=== PATIENT | male | born 1945 | race Caucasian/White ===

== ENCOUNTER → 2016-05-26 | Outpatient (CLI) | payer OTHER ==
[~2016-05-26] MED LIST: ALBU18002 INH; ASPEC81 PO; ASPI81TA28 PO; ATOR-22 PO; CNT PO; DLCSR120 PO; FOLI1TAB7 PO; METO50TA7 PO; MULT-506 PO; NTRGSL/4 UT; OXYC-57 PO; TAMS0.4C38 PO; THIA50TA3 PO
[2016-05-26 11:23] LABS: CHOLESTEROL/HDL RATIO 2.7
== END | disposition home or self-care (01) ==
LOC: C.LAB1850 08:52
PROVIDERS: ATTEND Internal Medicine Cardiovascular Disease
DX: E78.5 Hyperlipidemia, unspecified (principal); I10 Essential (primary) hypertension

== ENCOUNTER → 2016-07-07 | Outpatient (CLI) | payer OTHER ==
[2016-07-07 09:22] LABS: BASO % 0.3 %; BASO ABS # 0.03 K/uL (0-0.2); COMPLETE YES; EOS % 3.2 %; HEMATOCRIT 44.1 % (42-52); IG% 0.2 %; LYMPH % 15.8 %; LYMPH ABS # 1.59 K/uL (1.2-3.4); MEAN CELL VOLUME 87.5 fL (80-100); MEAN CORPUSCULAR HEMOGLOBIN 29.6 pg (25-34); MEAN CORPUSCULAR HGB CONC 33.8 g/dl (32-36); MEAN PLATELET VOLUME 11.5 fL (7.4-10.4); MONO % 7.2 %; NEUT % 73.3 %; PLATELET COUNT 234 K/uL (130-400); RED BLOOD COUNT 5.04 M/uL (4.7-6.1); WHITE BLOOD COUNT 10.07 K/uL (4.8-10.8)
[2016-07-07 10:03] LABS: ALT/SGPT 22 U/L (12-78); BLOOD UREA NITROGEN 14 mg/dl (7-18); BUN/CREATININE RATIO 14.1 (10-20); CALCIUM 8.9 mg/dl (8.5-10.1); CARBON DIOXIDE 28 mmol/L (21-32); CHLORIDE 105 mmol/L (98-107); CHOLESTEROL 129 mg/dl (0-200); CREATININE 0.98 mg/dl (0.60-1.40); GLUCOSE 103 mg/dl (70-99); POTASSIUM 4.1 mmol/L (3.5-5.1); SODIUM 140 mmol/L (136-145)
[2016-07-07 10:14] LABS: ALB/GLOB RATIO 0.9 (0.9-2); ALKALINE PHOSPHATASE 114 U/L (45-117); AST/SGOT 14 U/L (15-37); CHOLESTEROL/HDL RATIO 2.9; HDL CHOLESTEROL 44 mg/dl; LDL CHOLESTEROL CALCULATED 60 mg/dl; TRIGLYCERIDES 126 mg/dl (0-150); VERY LOW DENSITY LIPOPROT CALC 25 mg/dl
== END | disposition home or self-care (01) ==
LOC: C.LAB1850 08:43
PROVIDERS: ATTEND Internal Medicine Pulmonary Disease
DX: C67.9 Malignant neoplasm of bladder, unspecified (principal); E78.5 Hyperlipidemia, unspecified; I10 Essential (primary) hypertension; D49.4 Neoplasm of unspecified behavior of bladder; N40.0 Benign prostatic hyperplasia without lower urinary tract symptoms; J31.0 Chronic rhinitis

== ENCOUNTER 2016-08-10 08:05 | Day surgery (SDC) | payer OTHER ==
[2016-08-04 08:35] VITALS: BMI 24.0
--- NOTE | 2016-08-04 09:05 | PAT Medication Instructions ---
Service Date August 04, 2016. Current Home Medication List Albuterol Sulfate (Proair Respiclick), 2 PUFF INH Q4 PRN for SOB/Wheezing Aspirin Enteric Coated (Ecotrin Or Generic *), 81 MG PO QPM Atorvastatin (Lipitor), 20 MG PO QPM Diltiazem Hcl Ext Rel (Dilacor Xr *), 120 MG PO QPM Metoprolol Succ (Toprol Xl) (Toprol-Xl), 50 MG PO QPM Nitroglycerin (Nitrostat), 0.4 MG UT PRN Tamsulosin Hcl (Flomax), 0.4 MG PO QPM Medication Instructions For Your Scheduled Surgery - Continue as directed: Nitroglycerin (Nitrostat), 0.4 MG UT PRN - Last dose 08/03/16: Aspirin Enteric Coated (Ecotrin Or Generic *), 81 MG PO QPM - Take the following medications the morning of surgery: Albuterol Sulfate (Proair Respiclick), 2 PUFF INH Q4 PRN for SOB/Wheezing (use if needed; BRING TO HOSPITAL) - Take the following medications as scheduled the night before surgery: Albuterol Sulfate (Proair Respiclick), 2 PUFF INH Q4 PRN for SOB/Wheezing Tamsulosin Hcl (Flomax), 0.4 MG PO QPM Atorvastatin (Lipitor), 20 MG PO QPM Diltiazem Hcl Ext Rel (Dilacor Xr *), 120 MG PO QPM Metoprolol Succ (Toprol Xl) (Toprol-Xl), 50 MG PO QPM If you have any questions please call us at [phone] or [phone] or [phone]
--- NOTE | 2016-08-04 09:51 | DIAGNOSTIC IMAGING REPORT ---
CHEST PREADMISSION(PA/LAT) CLINICAL HISTORY: Preoperative chest COMPARISON STUDY: 07/15/2014 FINDINGS: The cardiac and mediastinal contours are normal. There is no evidence of focal pulmonary consolidation. There is no evidence of failure. No pleural effusions are visualized.[ There is a mild spinal curvature convex to the right. Degenerative changes are present within the dorsal spine. IMPRESSION: No active disease in the chest. Electronically signed by: Felipe Schofield M.D. 08/04/2016 9:50 AM Dictated Date/Time: 08/04/2016 9:50 AM
[2016-08-04 09:52] LABS: BASO % 0.4 %; BASO ABS # 0.03 K/uL (0-0.2); COMPLETE YES; HEMATOCRIT 46.1 % (42-52); IG% 0.1 %; LYMPH % 25.1 %; MEAN CELL VOLUME 88.8 fL (80-100); MEAN CORPUSCULAR HEMOGLOBIN 29.9 pg (25-34); MEAN CORPUSCULAR HGB CONC 33.6 g/dl (32-36); MEAN PLATELET VOLUME 11.3 fL (7.4-10.4); MONO % 7.3 %; NEUT % 62.1 %; PLATELET COUNT 258 K/uL (130-400); RED BLOOD COUNT 5.19 M/uL (4.7-6.1); WHITE BLOOD COUNT 7.17 K/uL (4.8-10.8)
[2016-08-04 09:56] LABS: URINE APPEARANCE CLEAR (CLEAR); URINE BILIRUBIN NEG (NEG); URINE COLOR YELLOW; URINE EPITHELIAL CELL AUTO 0-5 /lpf (0-5); URINE NITRITE NEG (NEG); URINE PH 6.5 (4.5-7.5); URINE SPECIFIC GRAVITY 1.009 (1.000-1.030); UROBILINOGEN NEG (NEG)
[2016-08-04 10:00] LABS: MANUAL MICROSCOPIC REQUIRED? NO; REVIEW REQ? NO
[2016-08-04 11:37] LABS: BUN/CREATININE RATIO 13.9 (10-20); CALCIUM 9.4 mg/dl (8.5-10.1); POTASSIUM 4.3 mmol/L (3.5-5.1)
[~2016-08-10] VITALS: Ht 182.9 cm; Wt 81.6 kg
[~2016-08-10 08:05] MED LIST changes: -ASPI81TA28 PO; +CIPROFLOXACIN 400MG / D5W IV SCH; -CNT PO; -FOLI1TAB7 PO; +LACTATED RINGER'S 1000ML 1,000 ML IV SCH; -MULT-506 PO; -OXYC-57 PO; -THIA50TA3 PO
[2016-08-10 08:23] VITALS: BP 153/73; PULSE 73; TEMP 36.6; O2SAT 98; Ht 182.9 cm; Wt 81.6 kg
[2016-08-10] MEDS ORDERED: PROPOFOL IV EMULSION 10 MG/ML 20 ML VIAL IV ONE ×2 (08:42→09:45)
[2016-08-10] MEDS ORDERED: LIDOCAINE HCL 2% 2 ML VIAL (20MG/ML) ONE (08:42)
[2016-08-10] MEDS ORDERED: FENTANYL CITRATE INJ 50 MCG/1 ML 2 ML VIAL ONE (08:43)
[2016-08-10] MEDS ORDERED: MIDAZOLAM HCL 1 MG/ML 2ML VIAL ONE (08:43)
[2016-08-10] MEDS ORDERED: FENTANYL CITRATE INJ 50 MCG/1 ML 2 ML VIAL IV PRN (08:45)
[2016-08-10] MEDS ORDERED: EpHEDrine SULFATE INJ 50 MG/ML AMP IV PRN (08:45)
[2016-08-10] MEDS ORDERED: ATROPINE SULFATE 0.1 MG/ML 5ML SYR IV PRN (08:45)
[2016-08-10 09:02] VITALS: PULSE 55; O2SAT 97
--- NOTE | 2016-08-10 09:13 | History & Physical Bridge - SC ---
H&P Re-Evaluation Bridge Note: I have examined the patient, reviewed the History & Physical and in the interval since the performance of the History & Physical I have noted the following changes of clinical significance: No changes noted
[2016-08-10] MEDS ORDERED: ALBUT/IPRATROP 3MG/0.5MG NEB 3 ML VIAL INH SCH (09:30)
[2016-08-10] MEDS ORDERED: EpHEDrine SULFATE INJ 50 MG/ML AMP ONE (09:45)
[2016-08-10] MEDS ORDERED: ONDANSETRON INJ 2 MG/ML 2 ML VIAL ONE (09:45)
[2016-08-10] MEDS ORDERED: OXYC-57 PO (10:10)
--- NOTE | 2016-08-10 10:11 | Discharge Instructions ---
Discharge Instructions Date of Service August 10, 2016. Visit Reason for Visit: Bladder Tumor Discharge Discharge Diagnosis / Problem: bladder tumor Discharge Goals Goal(s): Therapeutic intervention Activity Recommendations Activity Limitations: resume your previous activity (take it easy today) Anesthesia . Post Anesthesia Instructions: If you have had General Anesthesia or IV Sedation: * Do not drive today. * Resume driving when surgeon permits. * Do not make important decisions or sign legal documents today. * Call surgeon for: 1. Temperature elevations greater than 101 degrees F. 2. Uncontrollable pain. 3. Excessive bleeding. 4. Persistent nausea and vomiting. 5. Medication intolerance (nausea, vomiting or rash). * For nausea and vomiting use only clear liquids such as: tea, soda, bouillon until nausea subsides, then gradually increase diet as tolerated. * If you have any concerns or questions, call your surgeon's office. If physician is unavailable and it is an emergency, call 911 or go to the nearest emergency room. . Diet Recommendations Recommended Home Diet: resume previous diet Procedures Procedures Performed: Bipolar Transurethral Resection Bladder Tumor Pending Studies Studies pending at discharge: no Medical Emergencies . Who to Call and When: Medical Emergencies: If at any time you feel your situation is an emergency, please call 911 immediately. . Non-Emergent Contact Non-Emergency issues call your: Urologist . . "Provider Documentation" section prepared by Tommy Aguiar. . [place] Drug Monitoring Program Search Results: patient reviewed within database
[2016-08-10] MEDS ORDERED: OXYCODONE/ACETAMINOPHEN 5-325 TAB PO PRN (10:15)
[2016-08-10 10:50] VITALS: BP 122/52; PULSE 59; TEMP 36.5; O2SAT 92
--- NOTE | 2016-08-10 11:18 | OPERATIVE REPORT ---
DATE OF OPERATION: 08/10/2016 PREOPERATIVE DIAGNOSIS: Bladder tumor, medium in size. POSTOPERATIVE DIAGNOSIS: Same. PROCEDURES: Cystoscopy, transurethral resection, fulguration of bladder tumor. FINDINGS: Cystoscopic exam revealed normal urethra, prostatic fossa was obstructing with kissing lateral lobes, somewhat elevated median lobe. There was a bladder tumor, right at the bladder neck at 6 o'clock. There was also a bladder tumor on the right posterior wall and also lateral to the left ureteral orifice. SURGEON: Dr. Aguiar. ANESTHESIA: General. DRAINS: None. COMPLICATIONS: None. SPECIMENS: Bladder tumor fragments. INDICATIONS: The patient is a 71-year-old white male who on workup for hematuria was found to have bladder tumor, being brought in for resection. PROCEDURE: After the induction of an adequate general anesthetic and appropriate time-out, the patient was placed in the dorsal lithotomy position, lower abdomen and genitalia were prepped with Hibiclens and draped in a sterile fashion. Using a 22-Argentine cystoscope, routine cystoscopic exam was performed with the above-noted findings with the 30 and 70 degree lenses. Next, using a 24-Argentine bipolar cautery loop and resection scope, the bladder tumor at 6 o'clock, the bladder neck was resected and the area was then fulgurated for hemostasis. The tumor on the posterior wall on the right was then fulgurated with the loop as was the tumor lateral to the left ureteral orifice. Care was taken to avoid any injury to the ureteral orifices. After completing this, a Agata was used to evacuate the bladder tumor fragments. Bladder was then reinspected, there was no bleeding from the resection sites, there were no bladder tumor fragments remaining in the bladder. The patient's bladder was then drained, cystoscope and sheath were removed. All needle, sponge and instrument counts were correct at the end of the case. The patient tolerated the procedure well and went to the recovery room in stable condition. I attest to the content of the Intraoperative Record and any orders documented therein. Any exceptio ns are noted below.
[2016-08-10 11:20] VITALS: BP 115/56; PULSE 58; O2SAT 92
--- NOTE | 2016-08-10 11:57 | Anesthesiology Progress Note ---
Anesthesia Post Op Note Date & Time August 10, 2016 at 11:57 Vital Signs Pain Intensity: 0 Vital Signs Past 12 Hours Date Time Temp Pulse Resp B/P Pulse Ox O2 Delivery O2 Flow Rate FiO2 08/10/16 11:20 58 18 115/56 92 Diffusion Mask 0 08/10/16 10:50 36.5 59 18 122/52 92 Diffusion Mask 08/10/16 10:35 70 20 122/52 93 08/10/16 10:35 68 20 08/10/16 10:30 76 21 08/10/16 10:30 72 21 109/58 93 08/10/16 10:25 78 22 08/10/16 10:25 79 22 114/51 97 08/10/16 10:21 114/76 08/10/16 10:20 75 18 100 08/10/16 10:20 75 18 08/10/16 10:16 120/51 08/10/16 10:15 61 13 100 08/10/16 10:15 62 13 08/10/16 10:13 113/53 08/10/16 10:11 93/51 08/10/16 10:10 82 20 97/48 100 08/10/16 10:10 85 20 08/10/16 10:10 36.0 17 97/48 100 Diffusion Mask 10 08/10/16 09:02 55 18 97 Room Air 08/10/16 08:23 36.6 73 18 153/73 98 Room Air Notes Mental Status: alert / awake / arousable, participated in evaluation Pt Amnestic to Procedure: Yes Nausea / Vomiting: adequately controlled Pain: adequately controlled Airway Patency, RR, SpO2: stable & adequate BP & HR: stable & adequate Hydration State: stable & adequate Anesthetic Complications: no major complications apparent
== END 2016-08-10 11:25 | disposition home or self-care (01) ==
LOC: C.ACU 08:05
PROVIDERS: ATTEND Urology
DX: C67.5 Malignant neoplasm of bladder neck (principal); C67.4 Malignant neoplasm of posterior wall of bladder; I25.10 Atherosclerotic heart disease of native coronary artery without angina pectoris; H91.92 Unspecified hearing loss, left ear; M51.36 Other intervertebral disc degeneration, lumbar region; N40.0 Benign prostatic hyperplasia without lower urinary tract symptoms; E78.5 Hyperlipidemia, unspecified; I10 Essential (primary) hypertension; Z82.49 Family history of ischemic heart disease and other diseases of the circulatory system; Z82.3 Family history of stroke; Z79.82 Long term (current) use of aspirin; Z79.899 Other long term (current) drug therapy

== ENCOUNTER → 2016-11-25 | Outpatient (CLI) | payer OTHER ==
[~2016-11-25] MED LIST changes: +ASPI81TA28 PO; -CIPROFLOXACIN 400MG / D5W IV SCH; +FOLI1TAB7 PO; -LACTATED RINGER'S 1000ML 1,000 ML IV SCH; +MULT-506 PO; +OXYC-57 PO; +THIA50TA3 PO
[2016-11-25 12:35] LABS: CHOLESTEROL/HDL RATIO 3.5
== END | disposition home or self-care (01) ==
LOC: C.LAB1850 10:06
PROVIDERS: ATTEND Internal Medicine Cardiovascular Disease
DX: E78.5 Hyperlipidemia, unspecified (principal); I10 Essential (primary) hypertension

== ENCOUNTER 2016-12-04 01:27 | Inpatient (IN) | payer OTHER ==
[~2016-12-04] VITALS: Ht 182.9 cm; Wt 81.0 kg
[~2016-12-04 01:27] MED LIST changes: -ASPI81TA28 PO; -FOLI1TAB7 PO; -MULT-506 PO; -THIA50TA3 PO
[2016-12-04] MEDS ORDERED: SODIUM CHLORIDE 0.9% 1000ML 1,000 ML IV STA (01:48)
[2016-12-04 02:10] LABS: ISTAT CREATININE 1.1 mg/dl (0.6-1.3); ISTAT HEMOGLOBIN 15.3 g/dl (14.0-18.0); ISTAT IONIZED CALCIUM 1.28 mmol/l (1.12-1.32)
[2016-12-04 02:10] LABS: BASO % 0.4 %; BASO ABS # 0.04 K/uL (0-0.2); COMPLETE YES; EOS % 4.8 %; HEMATOCRIT 44.3 % (42-52); IG% 0.3 %; LYMPH % 23.8 %; LYMPH ABS # 2.72 K/uL (1.2-3.4); MEAN CELL VOLUME 88.2 fL (80-100); MEAN CORPUSCULAR HEMOGLOBIN 29.7 pg (25-34); MEAN CORPUSCULAR HGB CONC 33.6 g/dl (32-36); MEAN PLATELET VOLUME 11.5 fL (7.4-10.4); MONO % 8.4 %; NEUT % 62.3 %; PLATELET COUNT 254 K/uL (130-400); RED BLOOD COUNT 5.02 M/uL (4.7-6.1); WHITE BLOOD COUNT 11.41 K/uL (4.8-10.8)
[2016-12-04 02:15] LABS: URINE APPEARANCE CLEAR (CLEAR); URINE BILIRUBIN NEG (NEG); URINE COLOR YELLOW; URINE EPITHELIAL CELL AUTO 0-5 /lpf (0-5); URINE NITRITE NEG (NEG); URINE PH 5.5 (4.5-7.5); URINE SPECIFIC GRAVITY 1.016 (1.000-1.030); UROBILINOGEN NEG (NEG); ZZUR CULT IF INDIC CLEAN CATCH NO
[2016-12-04] MEDS ORDERED: OPTIRAY 320 IV PRN (02:15)
[2016-12-04 02:19] LABS: MANUAL MICROSCOPIC REQUIRED? NO; REVIEW REQ? NO
[2016-12-04 02:36] LABS: ALT/SGPT 21 U/L (12-78); AST/SGOT 13 U/L (15-37); BLOOD UREA NITROGEN 16 mg/dl (7-18); BUN/CREATININE RATIO 14.4 (10-20); CALCIUM 9.4 mg/dl (8.5-10.1); CARBON DIOXIDE 28 mmol/L (21-32); CHLORIDE 107 mmol/L (98-107); GLUCOSE 111 mg/dl (70-99); POTASSIUM 4.4 mmol/L (3.5-5.1); SODIUM 138 mmol/L (136-145)
[2016-12-04] MEDS ORDERED: ASPI81TA28 PO (02:36)
[2016-12-04] MEDS ORDERED: DLCSR120 PO (02:37)
[2016-12-04 02:38] LABS: ALKALINE PHOSPHATASE 112 U/L (45-117)
[2016-12-04] MEDS ORDERED: HYDROmorphone INJ 1 MG/ML SYR IV STA (02:56)
[2016-12-04] MEDS ORDERED: ALBUTEROL HFA 8 GM INHALER INH PRN (04:00)
[2016-12-04] MEDS ORDERED: ACETAMINOPHEN 325 MG TAB PO PRN (04:00)
[2016-12-04] MEDS ORDERED: MoRPHine SULFATE 4 MG/ML 1 ML CARP\\VIAL IV PRN (04:00)
[2016-12-04] MEDS ORDERED: ONDANSETRON INJ 2 MG/ML 2 ML VIAL IV PRN (04:00)
--- NOTE | 2016-12-04 04:04 | History and Physical ---
History & Physical Date & Time of Service: Dec 04, 2016 at 04:02 Chief Complaint: Abd Pain In To Back Primary Care Physician: Vipin Bravo M.D. History of Present Illness Source: patient 71-year-old male presenting to the ER with complaints of abdominal pain started at about 11:30 PM. The patient complains of pain in his mid abdominal area radiating to the back, 8/10 in severity, constant. Denies any nausea or vomiting or diarrhea denies. any fevers or chills or any urinary complaints. Denies any chest pain, shortness of breath, palpitations. He states that he drinks about 2-3 bottles of beer every day and has been drinking for a long time Past Medical/Surgical History Medical Problems: (1) Cataract Status: Resolved (2) History of bladder malignancy Status: Chronic Family History FHx: heart disease Stroke Social History Smoking Status: Current Some Day Smoker Drug Use: none Marital Status: Occupational Status: retired Allergies Coded Allergies: No Known Allergies (Verified , 12/04/16) Home Medications Scheduled Aspirin (Aspirin Ec), 81 MG PO DAILY Atorvastatin (Lipitor), 20 MG PO QPM Diltiazem HCl (Diltiazem HCl ER), 120 MG PO DAILY Metoprolol Succ (Toprol Xl) (Toprol-Xl), 50 MG PO QPM Nitroglycerin (Nitrostat), 0.4 MG UT PRN Tamsulosin Hcl (Flomax), 0.4 MG PO QPM Scheduled PRN Albuterol Sulfate (Proair Respiclick), 2 PUFF INH Q4 PRN for SOB/Wheezing Review of Systems Constitutional: No fever, No chills Eyes: No worsening of vision ENT: No hearing loss Respiratory: No cough, No sputum Cardiovascular: No chest pain Abdomen: + pain, No nausea, No vomiting, No diarrhea Musculoskeletal: No joint pain Genitourinary - Male: No hematuria, No dysuria Neurologic: No memory loss Psychiatric: No depression symptoms Hematologic / Lymphatic: No abnormal bleeding/bruising Integumentary: No rash Physical Exam Vital Signs Date Time Temp Pulse Resp B/P (MAP) Pulse Ox O2 Delivery O2 Flow Rate FiO2 12/04/16 03:24 77 16 142/65 97 Room Air 12/04/16 01:31 36.3 55 18 158/62 93 Room Air General Appearance: WD/WN, no apparent distress Head: normocephalic ENT: normal ENT inspection, hearing grossly normal Neck: supple Respiratory/Chest: chest non-tender, lungs clear Cardiovascular: regular rate, rhythm, no edema Abdomen/GI: normal bowel sounds, non tender, soft Extremities/Musculoskelatal: normal inspection, no pedal edema Neurologic/Psych: alert, normal mood/affect, oriented x 3 Skin: normal color Diagnostics Laboratory Results Results Past 24 Hours Test 12/04/16 01:40 12/04/16 01:45 12/04/16 01:56 Range/Units Urine Color YELLOW Urine Appearance CLEAR CLEAR Urine pH 5.5 4.5-7.5 Urine Specific [place] 1.016 1.000-1.030 Urine Protein NEG NEG Urine Glucose (UA) NEG NEG Urine Ketones NEG NEG Urine Occult Blood NEG NEG Urine Nitrite NEG NEG Urine Bilirubin NEG NEG Urine Urobilinogen NEG NEG Urine Leukocyte Esterase NEG NEG Urine WBC (Auto) 0 0-5 /hpf Urine RBC (Auto) 0-4 0-4 /hpf Urine Hyaline Casts (Auto) 0 0-5 /lpf Urine Epithelial Cells (Auto) 0-5 0-5 /lpf Urine Bacteria (Auto) NEG NEG White Blood Count 11.41 4.8-10.8 K/uL Red Blood Count 5.02 4.7-6.1 M/uL Hemoglobin 14.9 14.0-18.0 g/dL Hematocrit 44.3 42-52 % Mean Corpuscular Volume 88.2 80-100 fL Mean Corpuscular Hemoglobin 29.7 25-34 pg Mean Corpuscular Hemoglobin Concent 33.6 32-36 g/dl Platelet Count 254 130-400 K/uL Mean Platelet Volume 11.5 7.4-10.4 fL Neutrophils (%) (Auto) 62.3 % Lymphocytes (%) (Auto) 23.8 % Monocytes (%) (Auto) 8.4 % Eosinophils (%) (Auto) 4.8 % Basophils (%) (Auto) 0.4 % Neutrophils # (Auto) 7.11 1.4-6.5 K/uL Lymphocytes # (Auto) 2.72 1.2-3.4 K/uL Monocytes # (Auto) 0.96 0.11-0.59 K/uL Eosinophils # (Auto) 0.55 0-0.5 K/uL Basophils # (Auto) 0.04 0-0.2 K/uL RDW Standard Deviation 44.0 36.4-46.3 fL RDW Coefficient of Variation 13.5 11.5-14.5 % Immature Granulocyte % (Auto) 0.3 % Immature Granulocyte # (Auto) 0.03 0.00-0.02 K/uL Sodium Level 138 136-145 mmol/L Potassium Level 4.4 3.5-5.1 mmol/L Chloride Level 107 98-107 mmol/L Carbon Dioxide Level 28 21-32 mmol/L Anion Gap 3.0 17.0 16-25 mmol/L Blood Urea Nitrogen 16 7-18 mg/dl Creatinine 1.10 0.60-1.40 mg/dl Est Creatinine Clear Calc Drug Dose 64.1 ml/min Estimated GFR () 76.8 Estimated GFR (Non- 66.2 BUN/Creatinine Ratio 14.4 10-20 Random Glucose 111 70-99 mg/dl Calcium Level 9.4 8.5-10.1 mg/dl Total Bilirubin 0.4 0.2-1 mg/dl Direct Bilirubin < 0.1 0-0.2 mg/dl Aspartate Amino Transf (AST/SGOT) 13 15-37 U/L Alanine Aminotransferase (ALT/SGPT) 21 12-78 U/L Alkaline Phosphatase 112 45-117 U/L Total Protein 7.6 6.4-8.2 gm/dl Albumin 3.7 3.4-5.0 gm/dl Lipase 6328 73-393 U/L Bedside Hemoglobin 15.3 14.0-18.0 g/dl Bedside Hematocrit 45 42-52 % Bedside Sodium 141 135-144 mEq/L Bedside Potassium 4.3 3.3-5.0 mEq/L Bedside Chloride 102 101-112 mEq/L Bedside Total CO2 28 24-31 mEq/l Bedside Blood Urea Nitrogen 17 7-18 mg/dl Bedside Creatinine 1.1 0.6-1.3 mg/dl Bedside Glucose (other) 110 70-99 mg/dl Bedside Ionized Calcium (Tonya) 1.28 1.12-1.32 mmol/l Diagnostic Radiology Comparison: CT abdomen and pelvis 11/27/2008 There is stranding and fluid surrounding the pancreatic body and tail compatible with acute pancreatitis. no evidence of cystic or necrotic collection. Normal enhancement of the pancreatic parenchyma. Unremarkable liver, gallbladder, adrenal glands, and kidneys. Low-density 7 mm subcapsular focus in the posterior spleen, slightly increased in size from prior exam. Normal appendix. no evidence of bowel obstruction. Sigmoid diverticulitis without acute diverticulitis. Unremarkable urinary bladder and prostate. L$-S1 posterior decompression and osteometallic fusion. no cute osseous findings. Radiologist: Aki Venegas M.D. Study ready at 02:27 and initial results transmitted at 02:38. Impression Assessment and Plan 71-year-old male presenting to the ER with complaints of abdominal pain started at about 11:30 PM. Acute pancreatitis: - Elevated lipase at 6328, trend lipases - Liver enzymes within normal limits - Abdominal CT with stranding and fluid collection of the pancreas suggestive of acute pancreatitis - Continue IV hydration with LR - Pain control with morphine as needed - We'll keep him nothing by mouth Chronic alcohol: -Drinks about 3 bottles of beer every day - Monitor for alcohol withdrawal BPH: - Continue Flomax Hypertension/coronary artery disease: - Continue aspirin, Lipitor, Toprol and diltiazem Full code DVT prophylaxis: Heparin subcutaneous Disposition: Admitted to [facility] Resident Physician Supervision Note: Pt seen/examined independently. I discussed the case with the resident and agree with the findings and plan as documented in the note. Any exceptions or clarifications are listed here: Relatively healthy 71 y/o M presented with severe upper quadrant abdominal pain - subsequently diagnosed with pancreatitis - may be related to ETOH consumption. OE AAO x 3 S1,2 R CTAB Mild diffuse abdominal tenderness No CCE P: IVF, NPO, pain control Discussed possibility of pancreatitis induced by ETOH - pt mostly drinks in moderation Documented By: Vj Ortega Level of Care Med/Surg Resuscitation Status FULL RESUSCITATION VTE Prophylaxis VTE Risk Assessment Done? Y/N: Yes Risk Level: High Given or contraindicated: Unfractionated heparin SQ Resident Tracking Resident Involvement: Resident Care Provided Care Provided: Adult Hospital Medicine
[2016-12-04] MEDS ORDERED: POLYETHYLENE (MIRALAX) 17 GM PACK PO PRN (05:45)
--- NOTE | 2016-12-04 05:46 | EMERGENCY ROOM VISIT NOTE ---
History Report prepared by Chris: Bozena Robbins Under the Supervision of: Dr. Armando Jara M.D. First contact with patient: 01:35 Chief Complaint: ABDOMINAL PAIN Stated Complaint: ABD PAIN IN TO BACK History of Present Illness The patient is a 71 year old male who presents to the Emergency Room with complaints of constant abdominal pain starting two hours ago. He reports that it awoke him from his sleep. He notes that 3-4 years ago he had an episode of Diverticulitis, but states that this feels different. He states this pain goes into his back. He currently rates his pain an 8/10 in severity. The patient complains of excessive belching and passing gas. He reports taking a Tums two hours ago with no relief. The patient denies chest pain hematochezia, vomiting, nausea, rashes, leg swelling, and urinary symptoms. The patient notes his last bowel movement was this morning. The patient states he drinks one beer everyday with his buddies at the [employer]. He notes that he eats healthy. Source of History: patient Onset: two hours ago Position: abdomen Symptom Intensity: 8/10 Quality: other (radiating) Timing: constant Associated Symptoms: + back pain, No chest pain, No nausea, No vomiting, No hematochezia, No urinary symptoms, No rash Note: The patient complains of excessive belching and gas. The patient denies leg swelling. Review of Systems See HPI for pertinent positives & negatives. A total of 10 systems reviewed and were otherwise negative. Past Medical & Surgical Medical Problems: (1) Cataract (2) Diverticulitis (3) History of bladder malignancy (4) Pancreatitis Family History FHx: heart disease Stroke Social History Smoking Status: Current Some Day Smoker Drug Use: none Marital Status: Housing Status: lives with significant other Occupation Status: retired Current/Historical Medications Scheduled Aspirin (Aspirin Ec), 81 MG PO DAILY Atorvastatin (Lipitor), 20 MG PO QPM Diltiazem HCl (Diltiazem HCl ER), 120 MG PO DAILY Metoprolol Succ (Toprol Xl) (Toprol-Xl), 50 MG PO QPM Nitroglycerin (Nitrostat), 0.4 MG UT PRN Tamsulosin Hcl (Flomax), 0.4 MG PO QPM Scheduled PRN Albuterol Sulfate (Proair Respiclick), 2 PUFF INH Q4 PRN for SOB/Wheezing Allergies Coded Allergies: No Known Allergies (Verified , 12/04/16) Physical Exam Vital Signs Date Time Temp Pulse Resp B/P (MAP) Pulse Ox O2 Delivery O2 Flow Rate FiO2 12/04/16 03:24 77 16 142/65 97 Room Air 12/04/16 01:31 36.3 55 18 158/62 93 Room Air Physical Exam GENERAL: Patient is uncomfortable appearing and moderate distress. HEENT: No acute trauma, normocephalic atraumatic, mucous membranes moist, no nasal congestion, no scleral icterus. NECK: No stridor, no adenopathy, no meningismus, trachea is midline. LUNGS: No dyspnea. Clear to auscultation and equal bilaterally. No wheeze, no rhonchi. HEART: Regular rate and rhythm. No murmurs, rubs, gallops appreciated. ABDOMEN: Soft, diffuse tenderness to palpation primarily over periumbilical region, bowel sounds positive, no masses appreciated, no peritonitis. BACK: No midline tenderness, no CVA tenderness EXTREMITIES: Normal motion all extremities, no cyanosis, no edema. NEUROLOGIC: Alert and oriented, no acute motor or sensory deficits, no focal weakness, cranial nerves grossly intact. SKIN: No rash, no jaundice, no diaphoresis. Medical Decision & Procedures ER Provider Diagnostic Interpretation: Radiology results and stated below per my review and radiologist interpretation: CT ABDOMEN & PELVIS: Comparison: CT abdomen and pelvis 11/27/2008 There is stranding and fluid surrounding the pancreatic body and tail compatible with acute pancreatitis. no evidence of cystic or necrotic collection. Normal enhancement of the pancreatic parenchyma. Unremarkable liver, gallbladder, adrenal glands, and kidneys. Low-density 7 mm subcapsular focus in the posterior spleen, slightly increased in size from prior exam. Normal appendix. no evidence of bowel obstruction. Sigmoid diverticulitis without acute diverticulitis. Unremarkable urinary bladder and prostate. L$-S1 posterior decompression and osteometallic fusion. no cute osseous findings. Radiologist: Aki Venegas M.D. Study ready at 02:27 and initial results transmitted at 02:38. Laboratory Results 12/04/16 01:45 Red Blood Count 5.02, Mean Corpuscular Volume 88.2, Mean Corpuscular Hemoglobin 29.7, Mean Corpuscular Hemoglobin Concent 33.6, Mean Platelet Volume 11.5, Neutrophils (%) (Auto) 62.3, Lymphocytes (%) (Auto) 23.8, Monocytes (%) (Auto) 8.4, Eosinophils (%) (Auto) 4.8, Basophils (%) (Auto) 0.4, Neutrophils # (Auto) 7.11, Lymphocytes # (Auto) 2.72, Monocytes # (Auto) 0.96, Eosinophils # (Auto) 0.55, Basophils # (Auto) 0.04 12/04/16 01:45 Test 12/04/16 01:40 12/04/16 01:45 12/04/16 01:56 Urine Color YELLOW Urine Appearance CLEAR (CLEAR) Urine pH 5.5 (4.5-7.5) Urine Specific [place] 1.016 (1.000-1.030) Urine Protein NEG (NEG) Urine Glucose (UA) NEG (NEG) Urine Ketones NEG (NEG) Urine Occult Blood NEG (NEG) Urine Nitrite NEG (NEG) Urine Bilirubin NEG (NEG) Urine Urobilinogen NEG (NEG) Urine Leukocyte Esterase NEG (NEG) Urine WBC (Auto) 0 /hpf (0-5) Urine RBC (Auto) 0-4 /hpf (0-4) Urine Hyaline Casts (Auto) 0 /lpf (0-5) Urine Epithelial Cells (Auto) 0-5 /lpf (0-5) Urine Bacteria (Auto) NEG (NEG) White Blood Count 11.41 K/uL (4.8-10.8) Red Blood Count 5.02 M/uL (4.7-6.1) Hemoglobin 14.9 g/dL (14.0-18.0) Hematocrit 44.3 % (42-52) Mean Corpuscular Volume 88.2 fL (80-100) Mean Corpuscular Hemoglobin 29.7 pg (25-34) Mean Corpuscular Hemoglobin Concent 33.6 g/dl (32-36) Platelet Count 254 K/uL (130-400) Mean Platelet Volume 11.5 fL (7.4-10.4) Neutrophils (%) (Auto) 62.3 % Lymphocytes (%) (Auto) 23.8 % Monocytes (%) (Auto) 8.4 % Eosinophils (%) (Auto) 4.8 % Basophils (%) (Auto) 0.4 % Neutrophils # (Auto) 7.11 K/uL (1.4-6.5) Lymphocytes # (Auto) 2.72 K/uL (1.2-3.4) Monocytes # (Auto) 0.96 K/uL (0.11-0.59) Eosinophils # (Auto) 0.55 K/uL (0-0.5) Basophils # (Auto) 0.04 K/uL (0-0.2) RDW Standard Deviation 44.0 fL (36.4-46.3) RDW Coefficient of Variation 13.5 % (11.5-14.5) Immature Granulocyte % (Auto) 0.3 % Immature Granulocyte # (Auto) 0.03 K/uL (0.00-0.02) Est Creatinine Clear Calc Drug Dose 64.1 ml/min Estimated GFR () 76.8 Estimated GFR (Non- 66.2 BUN/Creatinine Ratio 14.4 (10-20) Calcium Level 9.4 mg/dl (8.5-10.1) Total Bilirubin 0.4 mg/dl (0.2-1) Direct Bilirubin < 0.1 mg/dl (0-0.2) Aspartate Amino Transf (AST/SGOT) 13 U/L (15-37) Alanine Aminotransferase (ALT/SGPT) 21 U/L (12-78) Alkaline Phosphatase 112 U/L (45-117) Total Protein 7.6 gm/dl (6.4-8.2) Albumin 3.7 gm/dl (3.4-5.0) Lipase 6328 U/L (73-393) Bedside Hemoglobin 15.3 g/dl (14.0-18.0) Bedside Hematocrit 45 % (42-52) Bedside Sodium 141 mEq/L (135-144) Bedside Potassium 4.3 mEq/L (3.3-5.0) Bedside Chloride 102 mEq/L (101-112) Bedside Total CO2 28 mEq/l (24-31) Anion Gap 17.0 mmol/L (16-25) Bedside Blood Urea Nitrogen 17 mg/dl (7-18) Bedside Creatinine 1.1 mg/dl (0.6-1.3) Bedside Glucose (other) 110 mg/dl (70-99) Bedside Ionized Calcium (Tonya) 1.28 mmol/l (1.12-1.32) Laboratory results as reviewed by me. Medications Administered Medications (Trade) Dose Ordered Sig/Kassi Route Start Time Stop Time Status Last Admin Dose Admin Sodium Chloride 1,000 ml @ 999 mls/hr Q1H1M STAT IV 12/04/16 01:48 12/04/16 02:48 DC 12/04/16 01:57 999 MLS/HR Hydromorphone HCl (Dilaudid Inj) 1 mg NOW STAT IV 12/04/16 02:56 12/04/16 02:57 DC 12/04/16 03:16 1 MG ED Course 0138: The patient was evaluated in room B6. A complete history and physical exam was performed. 0148: Ordered NSS 1000 ml @ 999 mls/hr IV. 0253: The patient asked for something for the pain now. 0256: Ordered Dilaudid Inj 1 mg IV. 0308: Discussed the patient's case with Dr. Ortega. The patient will be evaluated for further treatment and disposition. Medical Decision Differential: Appendicitis, Diverticulitis, PUD/Gastritis, Biliary Pathology, Pancreatitis, UTI, Renal Colic, Bowel Obstruction, Aortic Pathology, Acute Coronary Syndrome, amongst other pathologies entertained. 71 yr old male with acute onset diffuse abdominal pain worse around umbilicus and radiating to back this evening. No other associated symptoms. Admits Etoh many hours prior to symptom onset. CT with pancreatitis and lipase elevated consistent with his symptoms. Suspect Etoh related though will need further monitoring/work-up. Given IV narcotics with great relief in pain. Stable and admitted to hospitalist service. Medication Reconcilliation Current Medication List: was personally reviewed by me Blood Pressure Screening Patient's blood pressure: Elevated blood pressure Will be monitored by hospitalist. Consults Time Called: [phone] Consulting Physician: Dr. Ortega Returned Call: [phone] Discussed the patient's case with Dr. Ortega. The patient will be evaluated for further treatment and disposition. Impression Primary Impression: Pancreatitis Scribe Attestation The scribe's documentation has been prepared under my direction and personally reviewed by me in its entirety. I confirm that the note above accurately reflects all work, treatment, procedures, and medical decision making performed by me. Departure Information Dispostion Being Evaluated By Hospitalist Referrals Vipin Bravo M.D. (PCP) Patient Instructions My [facility]
[2016-12-04] MEDS: LACTATED RINGER'S 1000ML 1,000 ML IV SCH ×3 (05:51→23:39)
[2016-12-04 06:16] VITALS: BP 152/71; PULSE 57; TEMP 36.4; O2SAT 93; Ht 182.9 cm; Wt 81.0 kg
[2016-12-04 06:19] LABS: HEMATOCRIT 41.6 % (42-52); MEAN CELL VOLUME 89.1 fL (80-100); MEAN CORPUSCULAR HEMOGLOBIN 28.9 pg (25-34); MEAN CORPUSCULAR HGB CONC 32.5 g/dl (32-36); MEAN PLATELET VOLUME 11.1 fL (7.4-10.4); PLATELET COUNT 225 K/uL (130-400); RED BLOOD COUNT 4.67 M/uL (4.7-6.1); WHITE BLOOD COUNT 9.55 K/uL (4.8-10.8)
[2016-12-04 06:27] LABS: INR 1.1 (0.9-1.1); PROTHROMBIN TIME (PATIENT) 11.4 SECONDS (9.0-12.0)
[2016-12-04 06:55] LABS: BUN/CREATININE RATIO 14.6 (10-20); CREATININE 0.95 mg/dl (0.60-1.40); POTASSIUM 4.4 mmol/L (3.5-5.1)
--- NOTE | 2016-12-04 07:12 | DIAGNOSTIC IMAGING REPORT ---
ABD/PELVIS IV CONTRAST ONLY CLINICAL HISTORY: 71 years-old Male presenting with diffuse sudden onset abdominal pain. TECHNIQUE: Multidetector CT of the abdomen and pelvis was performed after the administration of intravenous contrast. IV contrast: 93 mL of Optiray 320. A dose lowering technique was used consistent with the principles of ALARA (as low as reasonably achievable). COMPARISON: 11/27/2008. CT DOSE (mGy.cm): The estimated cumulative dose is 355.05 mGy.cm. FINDINGS: Alternative Medicine Practitioner topogram: Posterior lumbar fusion hardware. Lung bases: Minimal dependent changes likely atelectasis. Normal heart size. Coronary artery calcification. No pericardial or pleural effusion. Liver: Normal morphology. No liver lesion. Patent hepatic vasculature. Biliary: Mild central intrahepatic biliary ductal prominence. No extra hepatic biliary ductal dilatation. Normal gallbladder. Pancreas: Fat stranding along the pancreatic tail extending into the left anterior perirenal space and to the splenic hilum. No peripancreatic well-defined fluid collection. Pancreatic parenchyma is overall normal in its enhancement. Spleen: Small focal 1 cm hypodensity along the medial inferior aspect, possibly lymphangioma, hemangioma, or pseudocyst/cyst, evaluation limited by single phase of contrast. Parenchymal calcification may suggest prior granulomatous disease. Splenic artery and vein remain patent and normal in caliber. Adrenal glands: Normal. Kidneys and ureters: Vascular calcification noted most prominently in the segmental arteries in the left kidney. No nephrolithiasis. Normal enhancement. No hydronephrosis. Normal ureters. Bladder: Mild circumferential wall thickening. Pelvic organs: Prostate enlargement likely secondary to benign prostatic hyperplasia. Bowel: Diverticulosis of the sigmoid colon and to a lesser extent the descending colon. Normal appendix. No bowel obstruction. No significant reactive wall thickening of the splenic flexure. Peritoneal cavity: Retroperitoneal fluid in the left anterior para renal space as mentioned above. No free intraperitoneal fluid or gas. 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 The false lumen is nonopacified. Lymph nodes: Scattered subcentimeter retroperitoneal lymph nodes, likely reactive. Abdominal wall: Normal. Musculoskeletal: Degenerative changes of the spine. Posterior lumbar fusion hardware from L4 to S1 with associated laminectomy defects. IMPRESSION: 1. Findings consistent with interstitial edematous pancreatitis along the pancreatic tail. No focal acute peripancreatic fluid collection. No additional competition. 2. 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 3. Sigmoid diverticulosis. Electronically signed by: Joshua Diaz M.D. 12/04/2016 7:11 AM Dictated Date/Time: 12/04/2016 7:03 AM
[2016-12-04 07:23] VITALS: BP 148/79; PULSE 53; TEMP 36.5; O2SAT 95
[2016-12-04] MEDS: ASPIRIN 81 MG ECTAB PO SCH (08:00)
[2016-12-04] MEDS: DILTIAZEM HCL 120 MG ER CAP PO SCH (08:00)
[2016-12-04] MEDS: HEPARIN SOD 5000 UNIT/0.5 ML CARP SQ SCH ×2 (08:08→13:57)
--- NOTE | 2016-12-04 10:24 | Family Medicine Progress Note ---
Progress Note Date of Service Dec 04, 2016. Subjective Pt evaluation today including: conversation w/ patient, physical exam, chart review, lab review Pain: Improved: At rest 1-2/10 abd pn, with burping 5/10 PO Intake: NPO Voiding: no voiding problems This AM Mr. Ott reports improvement in pain to 1-2/10 at rest and 5/10 with abdominal pressure from burping/coughing. He reports he is able to get up and use the restroom and his urine is being collected and light yellow. Otherwise denies ELMORE/dizz, cp, sob, n/v, d/c. Of note: pt reports non-malignant bladder polyp removal on 08/20/16 Constitutional: No fever Respiratory: No shortness of breath Cardiovascular: No chest pain Abdomen: + pain, No nausea, No vomiting, No diarrhea, No constipation Male : No dysuria Medications Current Inpatient Medications Medications (Trade) Dose Ordered Sig/Kassi Route Start Time Stop Time Status Last Admin Dose Admin Ioversol (Optiray 320) 100 ml UD PRN IV 12/04/16 02:15 12/08/16 02:14 Heparin Sodium (Porcine) (Heparin Sq 5000 Unit/0.5ml) 5,000 unit Q8 SQ 12/04/16 06:00 01/03/17 05:59 12/04/16 08:08 5,000 UNIT Acetaminophen (Tylenol Tab) 650 mg Q4H PRN PO 12/04/16 04:00 01/03/17 03:59 Polyethylene (Miralax Powder Packet) 17 gm DAILY PRN PO 12/04/16 05:45 01/03/17 05:44 Ondansetron HCl (Zofran Inj) 4 mg Q6H PRN IV 12/04/16 04:00 01/03/17 03:59 Aspirin (Ecotrin Tab) 81 mg DAILY PO 12/04/16 08:00 01/03/17 08:59 Atorvastatin Calcium (Lipitor Tab) 20 mg QPM PO 12/04/16 21:00 01/03/17 20:59 Diltiazem HCl (Dilacor Xr Cap) 120 mg DAILY PO 12/04/16 08:00 01/03/17 08:59 Metoprolol Succinate (Toprol Xl Tab) 50 mg QPM PO 12/04/16 21:00 01/03/17 20:59 Tamsulosin HCl (Flomax Cap) 0.4 mg QPM PO 12/04/16 21:00 01/03/17 20:59 Albuterol (Ventolin Hfa Inhaler) 2 puffs Q4H PRN INH 12/04/16 04:00 01/03/17 03:59 Lactated Ringer's 1,000 ml @ 100 mls/hr Q10H IV 12/04/16 04:00 01/03/17 03:59 12/04/16 05:51 100 MLS/HR Morphine Sulfate (MoRPHine SULFATE INJ) 4 mg Q4H PRN IV 12/04/16 04:00 12/18/16 03:59 Objective Physical Exam General Appearance: no apparent distress Eyes: normal inspection Respiratory/Chest: lungs clear, normal breath sounds, no respiratory distress Cardiovascular: regular rate, rhythm Abdomen: normal bowel sounds, soft, + tenderness (mid-abdominal and epigastric TTP) Extremities: non-tender, no pedal edema Neurologic/Psychiatric: alert, normal mood/affect, oriented x 3 Skin: warm/dry Laboratory Results 12/04/16 05:57 12/04/16 05:57 Test 12/04/16 01:40 12/04/16 01:45 12/04/16 01:56 12/04/16 05:57 Urine Color YELLOW Urine Appearance CLEAR (CLEAR) Urine pH 5.5 (4.5-7.5) Urine Specific [place] 1.016 (1.000-1.030) Urine Protein NEG (NEG) Urine Glucose (UA) NEG (NEG) Urine Ketones NEG (NEG) Urine Occult Blood NEG (NEG) Urine Nitrite NEG (NEG) Urine Bilirubin NEG (NEG) Urine Urobilinogen NEG (NEG) Urine Leukocyte Esterase NEG (NEG) Urine WBC (Auto) 0 /hpf (0-5) Urine RBC (Auto) 0-4 /hpf (0-4) Urine Hyaline Casts (Auto) 0 /lpf (0-5) Urine Epithelial Cells (Auto) 0-5 /lpf (0-5) Urine Bacteria (Auto) NEG (NEG) Immature Granulocyte % (Auto) 0.3 % White Blood Count 11.41 K/uL (4.8-10.8) Red Blood Count 5.02 M/uL (4.7-6.1) 4.67 M/uL (4.7-6.1) Hemoglobin 14.9 g/dL (14.0-18.0) Hematocrit 44.3 % (42-52) Mean Corpuscular Volume 88.2 fL (80-100) 89.1 fL (80-100) Mean Corpuscular Hemoglobin 29.7 pg (25-34) 28.9 pg (25-34) Mean Corpuscular Hemoglobin Concent 33.6 g/dl (32-36) 32.5 g/dl (32-36) Platelet Count 254 K/uL (130-400) Mean Platelet Volume 11.5 fL (7.4-10.4) 11.1 fL (7.4-10.4) Neutrophils (%) (Auto) 62.3 % Lymphocytes (%) (Auto) 23.8 % Monocytes (%) (Auto) 8.4 % Eosinophils (%) (Auto) 4.8 % Basophils (%) (Auto) 0.4 % Neutrophils # (Auto) 7.11 K/uL (1.4-6.5) Lymphocytes # (Auto) 2.72 K/uL (1.2-3.4) Monocytes # (Auto) 0.96 K/uL (0.11-0.59) Eosinophils # (Auto) 0.55 K/uL (0-0.5) Basophils # (Auto) 0.04 K/uL (0-0.2) Immature Granulocyte # (Auto) 0.03 K/uL (0.00-0.02) Direct Bilirubin < 0.1 mg/dl (0-0.2) Bedside Hemoglobin 15.3 g/dl (14.0-18.0) Bedside Hematocrit 45 % (42-52) Bedside Sodium 141 mEq/L (135-144) Bedside Potassium 4.3 mEq/L (3.3-5.0) Bedside Chloride 102 mEq/L (101-112) Bedside Total CO2 28 mEq/l (24-31) Bedside Blood Urea Nitrogen 17 mg/dl (7-18) Bedside Creatinine 1.1 mg/dl (0.6-1.3) Bedside Glucose (other) 110 mg/dl (70-99) Bedside Ionized Calcium (Tonya) 1.28 mmol/l (1.12-1.32) RDW Standard Deviation 44.2 fL (36.4-46.3) RDW Coefficient of Variation 13.5 % (11.5-14.5) Prothrombin Time 11.4 SECONDS (9.0-12.0) Prothromb Time International Ratio 1.1 (0.9-1.1) Anion Gap 5.0 mmol/L (3-11) Est Creatinine Clear Calc Drug Dose 76.0 ml/min Estimated GFR () 91.7 Estimated GFR (Non- 79.1 BUN/Creatinine Ratio 14.6 (10-20) Calcium Level 9.0 mg/dl (8.5-10.1) Total Bilirubin 0.5 mg/dl (0.2-1) Aspartate Amino Transf (AST/SGOT) 10 U/L (15-37) Alanine Aminotransferase (ALT/SGPT) 19 U/L (12-78) Alkaline Phosphatase 101 U/L (45-117) Total Protein 6.7 gm/dl (6.4-8.2) Albumin 3.3 gm/dl (3.4-5.0) Globulin 3.4 gm/dl (2.5-4.0) Albumin/Globulin Ratio 1.0 (0.9-2) Lipase 2596 U/L (73-393) Assessment and Plan 71-year-old male with hx of resected bladder tumor (low grade papillary urothelial carcinoma, noninvasive) and cataracts presenting for abdominal pain x 1 day consistent with acute alcoholic pancreatitis per CT. Acute pancreatitis: - Lipase elevated 6328 at admission, 2596 this AM - LFT wnl - Abdominal CT - interstitial edematous pancreatitis along tail - Continue IVF - LR 100ml/hr - Continue Dilaudid for pain relief - Maintain NPO - Trend lipases Chronic alcohol: no history of alcohol withdrawal (shakes/hallucinations) on prior hospitalizations. AWSS protocol ordered. Stop banana bags after 3 days of not drinking. - Drinks about 3 bottles of beer every day - Ordered AWSS protocol - stop banana bag after 3 days of not drinking - Ativan PRN for withdrawal symptoms - Monitor for alcohol withdrawal BPH: - Continue Flomax Hypertension/coronary artery disease: - Continue aspirin, Lipitor, Toprol and diltiazem Full code DVT prophylaxis: Lovenox 40mg Qday Disposition: pending improvement in clinical status and pain Resident Involvement: Resident Care Provided Care Provided: Adult Hospital Medicine Reviewed: Pt Seen/Exam by Me History Resident Physician Supervision Note: I interviewed and examined the patient. Discussed with Dr. Bethea and agree with findings and plan as documented in the note. Any exceptions or clarifications are listed here: Patient feeling much better, only twinges of abdominal pain at times. Lipase trending downward as well. He reports that he will most likely will not quit drinking alcohol altogether. His is at the bedside during our discussion. Vitals reviewed No acute distress, alert awake and oriented 3 Regular rate and rhythm, no murmurs Rubs or Gallops Lungs Clear to Auscultation Bilaterally, Breathing Unlabored Abdomen Positive Bowel Sounds, Soft, Mild Positive Times Palpation Epigastric Region without Guarding or Rebound Tenderness, No Hepatosplenomegaly Extremities No Edema, 2 Posterior Cells Pedis Pulses Skin No Rashes or Bruising in the Abdomen 71-year-old Male with History of Stage I Bladder Cancer Status Post Removal, Hypertension, CAD, BPH, COPD, Current Smoker, Alcohol Abuse, Here with Acute Alcoholic Pancreatitis-Resolving, Mild to Moderate Case. -Continue IV Fluids -Continue Nothing by Mouth Status but Likely Can Advance Diet and Hopefully Discharge to Home Tomorrow -Follow LFTs and lipase in the morning -Encouraged alcohol cessation -Continue alcohol withdrawal protocol, banana bag, recommend by mouth thiamine, folate, multivitamin on discharge Documented By: Liz Beaver
[2016-12-04 11:15] VITALS: BP 160/73; PULSE 55; TEMP 36.8; O2SAT 95
[2016-12-04] MEDS ORDERED: LORAZEPAM 2 MG/ML 1 ML VIAL IV PRN (14:30)
[2016-12-04] MEDS ORDERED: MULTI-VITAMIN INFUSION INJ 10 ML, THIAMINE HCL INJ 100 MG, FoLIC ACID INJ 1 MG in SODIU... IV ONE (14:45)
[2016-12-04] MEDS ORDERED: ENOXAPARIN 40 MG/0.4 ML SYR SQ ONE (14:59)
[2016-12-04 15:56] VITALS: BP 160/70; PULSE 58; TEMP 36.4; O2SAT 95
[2016-12-04 20:02] VITALS: BP 155/83; PULSE 58; TEMP 36.5; O2SAT 95
[2016-12-04] MEDS ORDERED: ATORVASTATIN 20 MG TAB PO SCH (21:00)
[2016-12-04] MEDS ORDERED: METOPROLOL SUCC 50MG EXT REL TAB PO SCH (21:00)
[2016-12-04] MEDS ORDERED: TAMSULOSIN HCL 0.4 MG CAP PO SCH (21:00)
[2016-12-04] MEDS ORDERED: ENOXAPARIN 40 MG/0.4 ML SYR SQ SCH (21:00)
[2016-12-04 23:06] VITALS: BP 138/69; PULSE 63; TEMP 36.7; O2SAT 93
[2016-12-05 03:50] VITALS: BP 126/70; PULSE 63; TEMP 36.7; O2SAT 95
[2016-12-05 06:16] LABS: BASO % 0.2 %; BASO ABS # 0.02 K/uL (0-0.2); COMPLETE YES; EOS % 1.2 %; HEMATOCRIT 41.3 % (42-52); IG% 0.3 %; LYMPH % 13.8 %; LYMPH ABS # 1.51 K/uL (1.2-3.4); MEAN CELL VOLUME 87.9 fL (80-100); MEAN CORPUSCULAR HEMOGLOBIN 29.1 pg (25-34); MEAN CORPUSCULAR HGB CONC 33.2 g/dl (32-36); MEAN PLATELET VOLUME 11.8 fL (7.4-10.4); MONO % 4.8 %; NEUT % 79.7 %; PLATELET COUNT 218 K/uL (130-400); WHITE BLOOD COUNT 10.96 K/uL (4.8-10.8)
[2016-12-05 06:46] LABS: CREATININE 0.92 mg/dl (0.60-1.40)
[2016-12-05 06:47] LABS: BUN/CREATININE RATIO 11.1 (10-20); CALCIUM 9.3 mg/dl (8.5-10.1); POTASSIUM 3.9 mmol/L (3.5-5.1)
[2016-12-05 07:07] LABS: ALB/GLOB RATIO 0.9 (0.9-2)
[2016-12-05 07:37] VITALS: BP 129/99; PULSE 72; TEMP 36.7; O2SAT 94
[2016-12-05] MEDS: DILTIAZEM HCL 120 MG ER CAP PO SCH (07:41)
[2016-12-05] MEDS: ASPIRIN 81 MG ECTAB PO SCH (07:41)
[2016-12-05] MEDS ORDERED: ENOXAPARIN 40 MG/0.4 ML SYR SQ SCH (08:00)
[2016-12-05] MEDS: LACTATED RINGER'S 1000ML 1,000 ML IV SCH (10:27)
[2016-12-05] MEDS ORDERED: FOLI1TAB7 PO (11:07)
[2016-12-05] MEDS ORDERED: MULT-506 PO (11:07)
[2016-12-05] MEDS ORDERED: THIA50TA3 PO (11:07)
--- NOTE | 2016-12-05 11:17 | Discharge Instructions ---
Discharge Instructions Date of Service Dec 05, 2016. Admission Reason for Admission: Pancreatitis Discharge Discharge Diagnosis / Problem: Acute Pancreatitis Discharge Goals Goal(s): Decrease discomfort, Learn about illness Activity Recommendations Activity Limitations: resume your previous activity . Instructions / Follow-Up Instructions / Follow-Up You came to [facility] because of severe abdominal pain. Your CT scan showed that your pancreas was inflamed, and you were diagnosed with acute pancreatitis. This was likely caused by your chronic alcohol intake. While you were in the hospital, we gave you IV fluids, and vitamins including thiamine, folic acid and magnesium. It would be beneficial for you to continue taking thiamine, folic acid and a multivitamin once a day, and these are all available over the counter. In addition, please continue to maintain a low-fat diet as fat stimulates the pancreas, and a low-fat diet would help decrease the inflammation around your pancreas. Due to the fact that you have not had any alcohol whilst in the hospital, you may experience withdrawal symptoms such as headaches, nausea and vomiting, tremors, or hallucinations. If you experience any of these symptoms, please go to your primary care provider as soon as possible. In the future, it would be beneficial for your health and lower your risk of a future episode of pancreatitis if you decreased the amount of alcohol you drink each day, or quit altogether. This can be difficult to achieve, and we recommend you work alongside your primary care provider who can provide support and resources. Otherwise, continue all your regular medications as prescribed and follow up with your primary care provider in 1 week, or sooner if you experience any abdominal pain, nausea or vomiting. Current Hospital Diet Patient's current hospital diet: Low Fat Diet Discharge Diet Recommended Diet: Low Fat Diet Pending Studies Studies pending at discharge: no Laboratory Results Lipid Panel Test 11/25/16 10:10 Range/Units Triglycerides Level 107 0-150 mg/dl Cholesterol Level 145 0-200 mg/dl HDL Cholesterol 42 mg/dl Cholesterol/HDL Ratio 3.5 LDL Cholesterol, Calculated 82 mg/dl Medical Emergencies . Who to Call and When: Medical Emergencies: If at any time you feel your situation is an emergency, please call 911 immediately. . Non-Emergent Contact Non-Emergency issues call your: Primary Care Provider . . "Provider Documentation" section prepared by Patricia Del Rosario. . VTE Core Measure Inpt VTE Proph given/why not?: Unfractionated heparin SQ
[2016-12-05 11:30] VITALS: BP 147/59; PULSE 59; TEMP 36.8; O2SAT 94
--- NOTE | 2016-12-05 12:59 | Discharge Summary ---
Discharge Summary Date of Service Dec 05, 2016. 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 TECHNIQUE: Multidetector CT of the abdomen and pelvis was performed after the administration of intravenous contrast. IV contrast: 93 mL of Optiray 320. A dose lowering technique was used consistent with the principles of ALARA (as low as reasonably achievable). COMPARISON: 11/27/2008. CT DOSE (mGy.cm): The estimated cumulative dose is 355.05 mGy.cm. 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 Lung bases: Minimal dependent changes likely atelectasis. Normal heart size. Coronary artery calcification. No pericardial or pleural effusion. Liver: Normal morphology. No liver lesion. Patent hepatic vasculature. Biliary: Mild central intrahepatic biliary ductal prominence. No extra hepatic biliary ductal dilatation. Normal gallbladder. Pancreas: Fat stranding along the pancreatic tail extending into the left anterior perirenal space and to the splenic hilum. No peripancreatic well-defined fluid collection. Pancreatic parenchyma is overall normal in its enhancement. Spleen: Small focal 1 cm hypodensity along the medial inferior aspect, possibly lymphangioma, hemangioma, or pseudocyst/cyst, evaluation limited by single phase of contrast. Parenchymal calcification may suggest prior granulomatous disease. Splenic artery and vein remain patent and normal in caliber. Adrenal glands: Normal. Kidneys and ureters: Vascular calcification noted most prominently in the segmental arteries in the left kidney. No nephrolithiasis. Normal enhancement. No hydronephrosis. Normal ureters. Bladder: Mild circumferential wall thickening. Pelvic organs: Prostate enlargement likely secondary to benign prostatic hyperplasia. Bowel: Diverticulosis of the sigmoid colon and to a lesser extent the descending colon. Normal appendix. No bowel obstruction. No significant reactive wall thickening of the splenic flexure. Peritoneal cavity: Retroperitoneal fluid in the left anterior para renal space as mentioned above. No free intraperitoneal fluid or gas. 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 The false lumen is nonopacified. Lymph nodes: Scattered subcentimeter retroperitoneal lymph nodes, likely reactive. Abdominal wall: Normal. Musculoskeletal: Degenerative changes of the spine. Posterior lumbar fusion hardware from L4 to S1 with associated laminectomy defects. IMPRESSION: 1. Findings consistent with interstitial edematous pancreatitis along the pancreatic tail. No focal acute peripancreatic fluid collection. No additional competition. 2. 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 3. Sigmoid diverticulosis. (Liz Beaver MD) Medication Reconciliation New Medications: Folic Acid (Folvite) 1 Mg Tab 1 TAB PO DAILY for 30 Days, #30 TAB 5 Refills Multivitamin (Multivitamin) Tab 1 TAB PO DAILY for 30 Days, #30 TAB Thiamine Hcl (Vitamin B-1) 50 Mg Tab 50 MG PO DAILY for 30 Days, #30 TAB Continued Medications: Albuterol Sulfate (Proair Respiclick) 108 Mcg/Act Aer 2 PUFF INH Q4 PRN for SOB/Wheezing Aspirin (Aspirin Ec) 81 Mg Tab 81 MG PO DAILY Atorvastatin (Lipitor) 20 Mg Tab 20 MG PO QPM, 0 Refills Diltiazem HCl (Diltiazem HCl ER) 120 Mg Caper 120 MG PO DAILY Metoprolol Succ (Toprol Xl) (Toprol-Xl) 50 Mg Tabcr 50 MG PO QPM, #30 0 Refills Nitroglycerin (Nitrostat) 0.4 Mg Tab 0.4 MG UT PRN, 0 Refills Tamsulosin Hcl (Flomax) 0.4 Mg Cap 0.4 MG PO QPM, CAP Discharge Exam Mr. Ott states that he feels well today. He denies any abdominal pain, nausea, vomiting, changes in urine or bowel habits. He is eager to be discharged home, and states that he is not experiencing any symptoms of alcohol withdrawal at this time, such as headaches, anxiety, tremors, or hallucinations. Review of Systems: Constitutional: No fever, No chills, No sweats, No weakness, No fatigue Respiratory: No cough, No sputum Cardiovascular: No chest pain Abdomen: No pain, No nausea, No vomiting, No diarrhea Genitourinary - Male: No hematuria, No dysuria Physical Exam: General Appearance: WD/WN, no apparent distress Respiratory/Chest: chest non-tender, lungs clear, no respiratory distress, no accessory muscle use, + wheezing Cardiovascular: regular rate, rhythm, no edema, no gallop, no JVD, no murmur , normal peripheral pulses Abdomen / GI: normal bowel sounds, non tender, soft, no organomegaly, no pulsatile mass Extremities: normal inspection, no calf tenderness, no pedal edema, non- tender Neurologic/Psychiatric: alert, normal mood/affect, oriented x 3 (Patricia Del Rosario M.D.) Hospital Course Mr. Ott presented to [facility] yesterday with 8/10 abdominal pain that radiated to his back. His initial lipase was 6328 on admission, and his CT scan demonstrated pancreatitis, with interstitial edema along the tail, likely secondary to his chronic alcohol use (2-3 beers every day). He was made NPO, and the AWSS protocol was initiated. He responded well and today reports that he is pain-free, and is tolerating a low-fat diet well. His lipase decreased to 497 today. He was discharged home, and counselled on stopping, or at least decreasing his alcohol intake. He was also told to present to his PCP if he experiences any symptoms of alcohol withdrawal, which he did not in the hospital, although it had not been yet been 72 hours since his last drink. He was told to take thiamine, folic acid and a multivitamin once a day in addition to his regular home medications and to follow up with his PCP in a week. Total Time Spent: Less than 30 minutes This includes examination of the patient, discharge planning, medication reconciliation, and communication with other providers. (Patricia Del Rosario M.D.) Discharge Instructions Please refer to the electronic Patient Visit Report (Discharge Instructions) for additional information. (Patricia Del Rosario M.D.) Additional Copies To Vipin Barvo M.D. Resident Tracking Resident Involvement: Resident Care Provided Care Provided: [facility] (Patricia Del Rosario M.D.) Reviewed: Pt Seen/Exam by Me (Liz Beaver MD) History Resident Physician Supervision Note: I interviewed and examined the patient. Discussed with Dr. Del Rosario and agree with findings and plan as documented in the note. Any exceptions or clarifications are listed here: Patient feeling much better, no abdominal pain at all and tolerating low fat doet prior to discharge. Lipase trending downward as well. Vitals reviewed No acute distress, alert awake and oriented 3 Regular rate and rhythm, no murmurs Rubs or Gallops Lungs Clear to Auscultation Bilaterally, Breathing Unlabored Abdomen Positive Bowel Sounds, Soft, no TTP, No Hepatosplenomegaly Extremities No Edema, 2 Posterior Cells Pedis Pulses Skin No Rashes or Bruising in the Abdomen 71-year-old Male with History of Stage I Bladder Cancer Status Post Removal, Hypertension, CAD, BPH, ?COPD, Alcohol Abuse, Here with Acute Alcoholic Pancreatitis-Resolved, Mild to Moderate Case. -stable for dc to home -encouraged EtOH cessation -f/u with PCP Documented By: Liz Beaver Total Time Spent: Greater than 30 minutes This includes examination of the patient, discharge planning, medication reconciliation, and communication with other providers. (Liz Beaver MD)
[2016-12-05 14:19] VITALS: BP 147/59; PULSE 59; TEMP 36.8; O2SAT 94
== END 2016-12-05 14:33 | disposition home or self-care (01) | DRG 440 ==
LOC: C.EDB 01:28 → C.4E 03:56 → ENRESERV 04:50
PROVIDERS: ADMIT Family Medicine; ATTEND Family Medicine
DX: K85.20 Alcohol induced acute pancreatitis without necrosis or infection (principal); F10.20 Alcohol dependence, uncomplicated; N40.0 Benign prostatic hyperplasia without lower urinary tract symptoms; I10 Essential (primary) hypertension; I25.10 Atherosclerotic heart disease of native coronary artery without angina pectoris; F17.200 Nicotine dependence, unspecified, uncomplicated; Z82.49 Family history of ischemic heart disease and other diseases of the circulatory system; Z82.3 Family history of stroke; Z79.82 Long term (current) use of aspirin; Z79.899 Other long term (current) drug therapy

== ENCOUNTER → 2016-12-24 | Outpatient (CLI) | payer OTHER ==
[~2016-12-24] MED LIST changes: -ASPEC81 PO; +ASPI81TA28 PO; +FOLI1TAB7 PO; +MULT-506 PO; -OXYC-57 PO; +THIA50TA3 PO
== END | disposition home or self-care (01) ==
LOC: C.PATHSPEC 11:12
PROVIDERS: ATTEND Urology
DX: C67.9 Malignant neoplasm of bladder, unspecified (principal); N30.20 Other chronic cystitis without hematuria

== ENCOUNTER → 2017-05-24 | Day surgery (SDC) | payer OTHER ==
[2017-05-11 10:28] VITALS: BMI 22.0
--- NOTE | 2017-05-11 10:52 | PAT Medication Instructions ---
Service Date May 11, 2017. Current Home Medication List Albuterol Sulfate (Proair Respiclick), 2 PUFF INH Q4 PRN for SOB/Wheezing Aspirin (Aspirin Ec), 81 MG PO HS Atorvastatin (Lipitor), 20 MG PO QPM Diltiazem HCl (Diltiazem HCl ER), 120 MG PO QPM Metoprolol Succ (Toprol Xl) (Toprol-Xl), 50 MG PO QPM Nitroglycerin (Nitrostat), 0.4 MG UT PRN Tamsulosin Hcl (Flomax), 0.4 MG PO QPM Medication Instructions For Your Scheduled Surgery -Continue as directed: Nitroglycerin (Nitrostat), 0.4 MG UT PRN - Hold the following medications 10 days prior to surgery: Aspirin (Aspirin Ec), 81 MG PO HS - Take the following medications the morning of surgery with a sip of water: Albuterol Sulfate (Proair Respiclick), 2 PUFF INH Q4 PRN for SOB/Wheezing (if needed, and bring it with you to the hospital) - Take the following medications as scheduled the night before surgery: Tamsulosin Hcl (Flomax), 0.4 MG PO QPM Atorvastatin (Lipitor), 20 MG PO QPM Diltiazem HCl (Diltiazem HCl ER), 120 MG PO QPM Metoprolol Succ (Toprol Xl) (Toprol-Xl), 50 MG PO QPM Albuterol Sulfate (Proair Respiclick), 2 PUFF INH Q4 PRN for SOB/Wheezing (if needed) If you have any questions please call us at [phone] or [phone] or [phone]
[2017-05-11 11:56] LABS: BASO % 0.3 %; BASO ABS # 0.03 K/uL (0-0.2); EOS % 2.1 %; EOS ABS # 0.19 K/uL (0-0.5); HEMATOCRIT 42.7 % (42-52); HEMOGLOBIN 14.1 g/dL (14.0-18.0); IG# 0.01 K/uL (0.00-0.02); LYMPH % 22.6 %; MEAN CELL VOLUME 86.3 fL (80-100); MEAN CORPUSCULAR HEMOGLOBIN 28.5 pg (25-34); MEAN PLATELET VOLUME 11.5 fL (7.4-10.4); MONO % 5.3 %; MONO ABS # 0.47 K/uL (0.11-0.59); NEUT % 69.6 %; NEUT ABS # 6.16 K/uL (1.4-6.5); PLATELET COUNT 235 K/uL (130-400); RED CELL DISTRIBUTION WIDTH CV 13.8 % (11.5-14.5); WHITE BLOOD COUNT 8.86 K/uL (4.8-10.8)
[2017-05-11 13:26] LABS: CALCIUM 9.4 mg/dl (8.5-10.1); CREATININE 0.95 mg/dl (0.60-1.40); POTASSIUM 4.5 mmol/L (3.5-5.1)
[~2017-05-24] VITALS: Ht 185.4 cm; Wt 76.2 kg
[~2017-05-24] MED LIST changes: +ATROPINE SULFATE 0.1 MG/ML 5ML SYR IV PRN; +CIPROFLOXACIN / D5W 400 MG IV SCH; +EpHEDrine SULFATE 50MG/5ML SYR ONE; +EpHEDrine SULFATE INJ 50 MG/ML AMP IV PRN; +FENTANYL CITRATE INJ 50 MCG/1 ML 2 ML VIAL IV PRN; +FENTANYL CITRATE INJ 50 MCG/1 ML 2 ML VIAL ONE; -FOLI1TAB7 PO; +HYDROmorphone INJ 1 MG/ML SYR IV PRN; +LACTATED RINGER'S 1000ML 1,000 ML IV SCH; +LIDOCAINE HCL 2% 2 ML VIAL (20MG/ML) ONE; -METO50TA7 PO; +METO50TA8 PO; -MULT-506 PO; +ONDANSETRON INJ 2 MG/ML 2 ML VIAL IV PRN; +ONDANSETRON INJ 2 MG/ML 2 ML VIAL ONE; +OXYC-57 PO; +OXYCODONE/ACETAMINOPHEN 5-325 TAB PO PRN; +PHENYLEPHRINE 100MCG/ML 5ML SYR ONE; +PROPOFOL IV EMULSION 10 MG/ML 20 ML VIAL IV ONE; -THIA50TA3 PO
[2017-05-24 05:58] VITALS: BP 147/60; PULSE 51; TEMP 36.5; O2SAT 96; Ht 185.4 cm; Wt 76.2 kg
--- NOTE | 2017-05-24 07:50 | [facility] Post Operative Brief Note ---
Immediate Operative Summary Operative Date May 24, 2017. Pre-Operative Diagnosis Bladder Carcinoma Post-Operative Diagnosis Bladder Carcinoma Procedure(s) Performed Transurethral Resection of Bladder Tumor, Cystoscopy Surgeon Dr. Tommy Aguiar Technical Services Assistant Surgeon(s) none Estimated Blood Loss 0mL Findings Consistent with Post-Op Diagnosis Specimens Permanent: A. Bladder Chips Drains None Anesthesia Type General Complication(s) none Disposition Accompanied Pt To Recover: yes Disposition: Recovery Room / PACU
--- NOTE | 2017-05-24 07:52 | Discharge Instructions ---
Discharge Instructions Date of Service May 24, 2017. Visit Reason for Visit: Bladder Tumor Discharge Discharge Diagnosis / Problem: Bladder tumor Discharge Goals Goal(s): Therapeutic intervention Activity Recommendations Activity Limitations: resume your previous activity Exercise/Sports Limitations: rest today May Resume Sexual Activity: when tolerated Shower/Bathe: no limitations Driving or Machine Use: resume 1 day after discharge Anesthesia . Post Anesthesia Instructions: If you have had General Anesthesia or IV Sedation: * Do not drive today. * Resume driving when surgeon permits. * Do not make important decisions or sign legal documents today. * Call surgeon for: 1. Temperature elevations greater than 101 degrees F. 2. Uncontrollable pain. 3. Excessive bleeding. 4. Persistent nausea and vomiting. 5. Medication intolerance (nausea, vomiting or rash). * For nausea and vomiting use only clear liquids such as: tea, soda, bouillon until nausea subsides, then gradually increase diet as tolerated. * If you have any concerns or questions, call your surgeon's office. If physician is unavailable and it is an emergency, call 911 or go to the nearest emergency room. . Diet Recommendations Recommended Home Diet: resume previous diet Procedures Procedures Performed: Transurethral Resection of Bladder Tumor, Cystoscopy Pending Studies Studies pending at discharge: no Medical Emergencies . Who to Call and When: Medical Emergencies: If at any time you feel your situation is an emergency, please call 911 immediately. . Non-Emergent Contact Non-Emergency issues call your: Urologist Call Non-Emergent contact if: temperature is above 101.5, your pain is not controlled . . "Provider Documentation" section prepared by Tommy Aguiar. . [place] Drug Monitoring Program Search Results: patient reviewed within database
--- NOTE | 2017-05-24 08:02 | [facility] Operative Report ---
Operative Report Operative Date May 24, 2017. Pre-Operative Diagnosis Bladder Carcinoma Post-Operative Diagnosis Bladder Carcinoma Procedure(s) Performed Transurethral Resection of Bladder Tumor, Cystoscopy Surgeon Dr. Tommy Aguiar Club Attendant Surgeon(s) none Estimated Blood Loss 0mL Findings Cystoscopic exam revealed a normal anterior urethra. Prostatic fossa was mildly obstructing with kissing lateral lobes. Bladder showed 1+ trabeculation. There was a medium bladder tumor at 12:00 at the bladder neck and 2 small tumors just medial to the left ureteral orifice Specimens Permanent: A. Bladder Chips Drains None Anesthesia Type General Complication(s) none Disposition yes Recovery Room / PACU Indications Patient's a 72-year-old white male with recurrent bladder tumor being brought in for TURBT Description of Procedure After the induction of an adequate general anesthetic and appropriate timeout patient was placed in the dorsal lithotomy position. Lower abdomen and genitalia were prepped with Hibiclens draped in a sterile fashion. Next using a 22 Kosovan cystoscope routine cystoscopic exam was performed with the above- noted findings with the 30 and 70 lenses. Next using a 24 Kosovan resection scope and a bipolar loop the tumors were resected. Care was taken to avoid injury to either ureteral orifice. After resecting all the tumor the areas were fulgurated for hemostasis. An [employer] evacuator was used to remove the bladder chips from the bladder which were handed off the table. Resection sites were reinspected there was no bleeding. Patient's bladder was drained resection scope and sheath were removed. All needle sponge and instrument counts were correct at the end of the case. Patient was taken to the recovery room in stable condition. I attest to the content of the Intraoperative Record and any orders documented therein. Any exceptions are noted below.
--- NOTE | 2017-05-24 08:33 | Anesthesiology Progress Note ---
Anesthesia Post Op Note Date & Time May 24, 2017 at 08:33 Vital Signs Pain Intensity: 0 Vital Signs Past 12 Hours Date Time Temp Pulse Resp B/P (MAP) Pulse Ox O2 Delivery O2 Flow Rate FiO2 05/24/17 08:25 60 16 135/62 (87) 96 Room Air 05/24/17 08:15 60 17 134/59 (89) 95 Room Air 05/24/17 08:05 53 15 128/59 (80) 100 Oxymask 10 05/24/17 07:55 52 15 11/53 (69) 100 Oxymask 10 05/24/17 07:49 36.6 52 14 119/53 (66) 100 Oxymask 10 05/24/17 05:58 36.5 51 20 147/60 (89) 96 Room Air Notes Mental Status: alert / awake / arousable, participated in evaluation Pt Amnestic to Procedure: Yes Nausea / Vomiting: adequately controlled Pain: adequately controlled Airway Patency, RR, SpO2: stable & adequate BP & HR: stable & adequate Hydration State: stable & adequate Anesthetic Complications: no major complications apparent
[2017-05-24 08:40] VITALS: BP 137/64; PULSE 55; TEMP 36.4; O2SAT 94
[2017-05-24 09:10] VITALS: BP 139/62; PULSE 57; O2SAT 96
[2017-05-24 09:20] VITALS: BP 132/62; PULSE 61; TEMP 36.4; O2SAT 97
== END | disposition home or self-care (01) ==
LOC: C.ACU 05:00
PROVIDERS: ATTEND Urology
DX: C67.9 Malignant neoplasm of bladder, unspecified (principal); I25.10 Atherosclerotic heart disease of native coronary artery without angina pectoris; H91.92 Unspecified hearing loss, left ear; M51.36 Other intervertebral disc degeneration, lumbar region; N40.0 Benign prostatic hyperplasia without lower urinary tract symptoms; E78.5 Hyperlipidemia, unspecified; I10 Essential (primary) hypertension; J45.909 Unspecified asthma, uncomplicated; Z82.49 Family history of ischemic heart disease and other diseases of the circulatory system; Z82.3 Family history of stroke; Z87.891 Personal history of nicotine dependence; Z79.899 Other long term (current) drug therapy; Z79.82 Long term (current) use of aspirin

== ENCOUNTER → 2017-08-03 | Outpatient (CLI) | payer OTHER ==
[~2017-08-03] MED LIST changes: -ATROPINE SULFATE 0.1 MG/ML 5ML SYR IV PRN; -CIPROFLOXACIN / D5W 400 MG IV SCH; -EpHEDrine SULFATE 50MG/5ML SYR ONE; -EpHEDrine SULFATE INJ 50 MG/ML AMP IV PRN; -FENTANYL CITRATE INJ 50 MCG/1 ML 2 ML VIAL IV PRN; -FENTANYL CITRATE INJ 50 MCG/1 ML 2 ML VIAL ONE; -HYDROmorphone INJ 1 MG/ML SYR IV PRN; -LACTATED RINGER'S 1000ML 1,000 ML IV SCH; -LIDOCAINE HCL 2% 2 ML VIAL (20MG/ML) ONE; -ONDANSETRON INJ 2 MG/ML 2 ML VIAL IV PRN; -ONDANSETRON INJ 2 MG/ML 2 ML VIAL ONE; -OXYCODONE/ACETAMINOPHEN 5-325 TAB PO PRN; -PHENYLEPHRINE 100MCG/ML 5ML SYR ONE; -PROPOFOL IV EMULSION 10 MG/ML 20 ML VIAL IV ONE
[2017-08-03 09:38] LABS: BASO % 0.4 %; BASO ABS # 0.04 K/uL (0-0.2); EOS ABS # 0.28 K/uL (0-0.5); HEMATOCRIT 42.4 % (42-52); HEMOGLOBIN 13.6 g/dL (14.0-18.0); IG# 0.02 K/uL (0.00-0.02); LYMPH % 21.1 %; LYMPH ABS # 1.97 K/uL (1.2-3.4); MEAN CELL VOLUME 85.8 fL (80-100); MEAN CORPUSCULAR HEMOGLOBIN 27.5 pg (25-34); MEAN CORPUSCULAR HGB CONC 32.1 g/dl (32-36); MEAN PLATELET VOLUME 11.1 fL (7.4-10.4); MONO % 7.1 %; MONO ABS # 0.66 K/uL (0.11-0.59); NEUT % 68.2 %; NEUT ABS # 6.36 K/uL (1.4-6.5); PLATELET COUNT 261 K/uL (130-400); RED CELL DISTRIBUTION WIDTH CV 14.4 % (11.5-14.5); RED CELL DISTRIBUTION WIDTH SD 45.3 fL (36.4-46.3); WHITE BLOOD COUNT 9.33 K/uL (4.8-10.8)
[2017-08-03 10:04] LABS: ALBUMIN 3.3 gm/dl (3.4-5.0); ALT/SGPT 18 U/L (12-78); AST/SGOT 13 U/L (15-37); BLOOD UREA NITROGEN 13 mg/dl (7-18); CALCIUM 9.2 mg/dl (8.5-10.1); CARBON DIOXIDE 29 mmol/L (21-32); CREATININE 1.04 mg/dl (0.60-1.40); GLUCOSE 100 mg/dl (70-99); POTASSIUM 4.2 mmol/L (3.5-5.1); SODIUM 138 mmol/L (136-145)
[2017-08-03 10:06] LABS: ALKALINE PHOSPHATASE 110 U/L (45-117); CHOLESTEROL 113 mg/dl (0-200); LDL CHOLESTEROL CALCULATED 50 mg/dl; TOTAL PROTEIN 7.6 gm/dl (6.4-8.2)
== END | disposition home or self-care (01) ==
LOC: C.LAB1850 08:39
PROVIDERS: ATTEND Internal Medicine Pulmonary Disease
DX: I25.10 Atherosclerotic heart disease of native coronary artery without angina pectoris (principal)